=== PATIENT | male | born 1985 ===

== ENCOUNTER 2017-10-01 11:50 | Emergency (ER) | payer MEDICAID ==
[2017-10-01 12:00] VITALS: BP 105/66; PULSE 80; RESP 18; TEMP 98.1; O2SAT 98
--- NOTE | 2017-10-01 12:17 | C.PDOC ---
Time Seen by Provider: 10/01/17 12:06 Chief Complaint (Nursing): Suture/Staple Removal History Per: Patient Onset/Duration Of Symptoms: Days Ago, Laceration Current Symptoms Are (Timing): Better Location Of Injury: Right: Face (Forehead) Quality Of Symptoms: denies: Painful, Swollen, Draining Severity: Mild Additional History Per: Prior Records Past Medical History Reviewed: Historical Data, Nursing Documentation, Vital Signs Vital Signs: Last Vital Signs Temp 98.1 F 10/01/17 11:57 Pulse 80 10/01/17 11:57 Resp 18 10/01/17 11:57 BP 105/66 10/01/17 11:57 Pulse Ox 98 10/01/17 11:57 - Medical History PMH: Asthma (from previous charts) - [facility] Procedures OTHER SKIN & SUBQ I D (04/12/14) Family History: States: Unknown Family Hx - Social History Hx Tobacco Use: Yes Hx Alcohol Use: No Hx Substance Use: No - Immunization History Hx Tetanus Toxoid Vaccination: No Hx Influenza Vaccination: No Hx Pneumococcal Vaccination: No Review Of Systems Except As Marked, All Systems Reviewed And Found Negative. Constitutional: Negative for: Fever, Weakness Cardiovascular: Negative for: Chest Pain Gastrointestinal: Negative for: Nausea, Vomiting Musculoskeletal: Negative for: Neck Pain Skin: Negative for: Rash Neurological: Negative for: Weakness, Numbness, Seizures, Altered Mental Status , Headache Physical Exam - Physical Exam Appears: Non-toxic, No Acute Distress Skin: Normal Color, Warm, Dry Head: Normacephalic, Laceration (right forehead, healed, closed with sutures) Eye(s): bilateral: PERRL, EOMI Neck: Normal ROM, No Midline Cervical Tenderness, No Step Off Deformity, Supple Extremity: Normal ROM Neurological/Psych: Oriented x3, Normal Cognition, Normal Cranial Nerves ED Course And Treatment O2 Sat by Pulse Oximetry: 98 Pulse Ox Interpretation: Normal Progress Note: Suture were removed without difficulty Reassessment Condition: Improved Disposition Counseled Patient/Family Regarding: Diagnosis, Need For Followup - Disposition Referrals: [facility] [Outside] [facility] [Outside] Disposition: HOME/ ROUTINE Disposition Time: 12:17 Condition: STABLE Additional Instructions: Follow up with your doctor or in the clinic. Return to the ER if you develop fever, redness, swelling, pus drainage, worsening of symptoms or if you have any other concerns. Instructions: Stitches Removal (ED) Forms: [employer] (Angolan) - Clinical Impression Clinical Impression: Removal of suture
== END 2017-10-01 12:22 | disposition home or self-care (01) ==
LOC: C.ER 11:50
DX: Z48.02 Encounter for removal of sutures (principal)

== ENCOUNTER 2019-01-10 06:51 | Emergency (ER) | payer MEDICAID ==
[2019-01-10 07:07] VITALS: BP 119/88; PULSE 109; RESP 20; TEMP 98.3; O2SAT 99
[2019-01-10] MEDS ORDERED: Tdap Vaccine 0.5 ml Vial (10-64 yrs) IM ONE ×2 (07:39→10:20)
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
[2019-01-10] MEDS ORDERED: Lidocaine 2% Jelly (Uro-Jet) ONE (10:01)
[2019-01-10] MEDS ORDERED: Lidocaine 2% Jelly (Uro-Jet) TOP ONE (10:09)
[2019-01-10] MEDS ORDERED: Bacitracin 500 Units/gm Oint Foilpak UD TOP ONE (10:16)
[2019-01-10] MEDS ORDERED: Bacitracin 500 Units/gm Oint Foilpak UD ONE (10:27)
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
== END 2019-01-10 11:20 | disposition left against medical advice (07) ==
LOC: C.ER 06:51
DX: S60.222A Contusion of left hand, initial encounter (principal); S60.512A Abrasion of left hand, initial encounter; S60.511A Abrasion of right hand, initial encounter; W49.04XA Ring or other jewelry causing external constriction, initial encounter

== ENCOUNTER 2019-01-25 01:07 | Inpatient (IN) | payer MEDICAID ==
[2019-01-25] MEDS ORDERED: Clindamycin 600mg/50ml D5W 600 MG/50 ML VIAL IVPB SCH (02:45)
[2019-01-25 03:00] LABS: BASO # 0.1 K/uL (0.0-0.2); BASO % 0.5 % (0.0-2.0); EOS # 0.3 K/uL (0.0-0.7); EOS % 2.7 % (0.0-4.0); HEMOGLOBIN 13.3 g/dL (12.0-18.0); LYMPH # 2.7 K/uL (1.0-4.3); LYMPH % 23.2 % (20.0-40.0); MEAN CELL VOLUME 93.6 fL (80.0-94.0); MEAN CORPUSCULAR HEMOGLOBIN 31.6 pg (27.0-31.0); MEAN CORPUSCULAR HGB CONC 33.8 g/dL (33.0-37.0); MEAN PLATELET VOLUME 6.9 fL (7.2-11.7); MONO # 0.6 K/uL (0.0-0.8); MONO % 5.4 % (0.0-10.0); NEUT % 68.2 % (50.0-75.0); RBC 4.21 Mil/uL (4.40-5.90); RED CELL DISTRIBUTION WIDTH 13.8 % (11.5-14.5); WHITE BLOOD COUNT 11.7 K/uL (4.8-10.8)
[2019-01-25] MEDS ORDERED: Clindamycin 600mg/50ml NS 600 MG/50 ML BAG IVPB ONE (03:00)
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
[2019-01-25 03:12] LABS: ALB/GLOB RATIO 1.7 (1.0-2.1); ALBUMIN 4.5 g/dL (3.5-5.0); ALT/SGPT 11 U/L (21-72); AST/SGOT 25 U/L (17-59); BLOOD UREA NITROGEN 15 mg/dL (9-20); CALCIUM 9.3 mg/dl (8.6-10.4); GFR NON-AFRICAN AMERICAN > 60
[2019-01-25] MEDS ORDERED: Iodixanol 320 mg/ml 150 ml Bottle IV ONE (05:47)
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
--- NOTE | 2019-01-25 09:01 | RAD ---
PROCEDURE: Left Hand Radiographs. HISTORY: 4th finger swollen COMPARISON: Comparison made with prior radiographs of the left hand 01/10/2019. TECHNIQUE: 3 views obtained. FINDINGS: BONES: No evidence of displaced fracture nor dislocation. No obvious cortical destructive changes. JOINTS: Normal. No osteoarthritic changes. SOFT TISSUES: There is circumferential soft tissue swelling centered at the PIP joint 4th finger possibly posttraumatic however the possibility of cellulitis not excluded. Clinical correlation recommended.. OTHER FINDINGS: None. IMPRESSION: No evidence of acute displaced fracture nor dislocation. There is circumferential soft tissue swelling centered at the PIP joint 4th finger possibly posttraumatic however the possibility of cellulitis not excluded. Clinical correlation recommended..
[2019-01-25] MEDS: Pantoprazole 40 mg EC Tab PO SCH (09:38)
[2019-01-25] MEDS: Multiple Vitamins Tab PO SCH (09:38)
[2019-01-25] MEDS: Clindamycin 300 MG in Sodium Chloride 0.9% 50 ML IVPB SCH ×3 (09:39→22:04)
[2019-01-25] MEDS: Clotrimazole 1% Cream 15 GM TUBE TOP SCH ×3 (09:40→22:07)
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
[2019-01-25 11:37] LABS: BASO % 0.4 % (0.0-2.0); EOS # 0.5 K/uL (0.0-0.7); EOS % 5.2 % (0.0-4.0); HEMOGLOBIN 12.7 g/dL (12.0-18.0); LYMPH # 2.3 K/uL (1.0-4.3); LYMPH % 25.1 % (20.0-40.0); MEAN CELL VOLUME 94.6 fL (80.0-94.0); MEAN CORPUSCULAR HEMOGLOBIN 32.4 pg (27.0-31.0); MEAN CORPUSCULAR HGB CONC 34.3 g/dL (33.0-37.0); MEAN PLATELET VOLUME 7.2 fL (7.2-11.7); MONO # 0.8 K/uL (0.0-0.8); MONO % 8.3 % (0.0-10.0); NEUT # 5.6 K/uL (1.8-7.0); NRBC % 0.1 % (0.0-2.0); RBC 3.92 Mil/uL (4.40-5.90); RED CELL DISTRIBUTION WIDTH 13.9 % (11.5-14.5); WHITE BLOOD COUNT 9.2 K/uL (4.8-10.8)
[2019-01-25 12:02] LABS: ALB/GLOB RATIO 1.7 (1.0-2.1); ALBUMIN 3.9 g/dL (3.5-5.0); ALT/SGPT 14 U/L (21-72); AST/SGOT 24 U/L (17-59); BLOOD UREA NITROGEN 19 mg/dL (9-20); CALCIUM 9.3 mg/dl (8.6-10.4); GFR NON-AFRICAN AMERICAN > 60
[2019-01-25 12:40] LABS: BARBITURATES, UR NEGATIVE (NEGATIVE); BENZODIAZEPINES, UR NEGATIVE (NEGATIVE); OPIATES, UR NEGATIVE (NEGATIVE)
[2019-01-25 13:00] LABS: PHENCYCLIDINE, UR POSITIVE (NEGATIVE)
[2019-01-25] MEDS: Moxifloxacin IV 400mg/250ml NS 400 MG/250 ML BAG IVPB SCH (13:30)
[2019-01-25] MEDS ORDERED: Pneumococcal 23-Valent Vaccine IM ONE (19:15)
[2019-01-25] MEDS ORDERED: Influenza Vaccine 60 mcg/0.5 mL SYR (4YR UP) IM ONE (19:16)
[2019-01-25] MEDS: Saccharomyces Boulardi 250 mg Cap PO SCH (22:04)
[2019-01-26 02:41] VITALS: RESP 20
[2019-01-26] MEDS: Clindamycin 300 MG in Sodium Chloride 0.9% 50 ML IVPB SCH ×4 (05:11→23:17)
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
[2019-01-26 08:00] LABS: BASO % 0.6 % (0.0-2.0); EOS # 0.5 K/uL (0.0-0.7); EOS % 7.2 % (0.0-4.0); HEMOGLOBIN 13.1 g/dL (12.0-18.0); LYMPH # 2.8 K/uL (1.0-4.3); LYMPH % 41.1 % (20.0-40.0); MEAN CORPUSCULAR HGB CONC 34.7 g/dL (33.0-37.0); MEAN PLATELET VOLUME 7.4 fL (7.2-11.7); MONO # 0.7 K/uL (0.0-0.8); MONO % 9.8 % (0.0-10.0); NEUT # 2.8 K/uL (1.8-7.0); NEUT % 41.3 % (50.0-75.0); RBC 3.98 Mil/uL (4.40-5.90); RED CELL DISTRIBUTION WIDTH 14.2 % (11.5-14.5); WHITE BLOOD COUNT 6.8 K/uL (4.8-10.8)
[2019-01-26 08:26] LABS: ALB/GLOB RATIO 1.5 (1.0-2.1); ALBUMIN 3.6 g/dL (3.5-5.0); ALT/SGPT 9 U/L (21-72); AST/SGOT 25 U/L (17-59); BLOOD UREA NITROGEN 20 mg/dL (9-20); CALCIUM 8.6 mg/dl (8.6-10.4); GFR NON-AFRICAN AMERICAN > 60
[2019-01-26] MEDS: Pantoprazole 40 mg EC Tab PO SCH (10:24)
[2019-01-26] MEDS: Multiple Vitamins Tab PO SCH (10:24)
[2019-01-26] MEDS: Saccharomyces Boulardi 250 mg Cap PO SCH ×2 (10:24→17:50)
[2019-01-26] MEDS: Clotrimazole 1% Cream 15 GM TUBE TOP SCH ×2 (10:25→23:09)
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
[2019-01-26] MEDS: Moxifloxacin IV 400mg/250ml NS 400 MG/250 ML BAG IVPB SCH (13:42)
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
--- NOTE | 2019-01-26 17:15 | NM ---
Date of service: 01/26/2019 PROCEDURE: Three-phase bone Scan HISTORY: r/o OM L 4th digit COMPARISON: January 26, 2019 CT left upper extremity TECHNIQUE: Following administration of 21.5 miCu of Tc MDP three-phase bone scan performed with particular attention directed to the left 4th digit. FINDINGS: Flow component: Increased flow to the left hand compared to right. Focal intense uptake left 4th digit and to lesser extent 2nd and 3rd digits. Blood pool component: Accumulation of radionuclide in decreasing order of intensity left 4th digit, 2nd digit and 3rd digit. Delayed images at 3:00: Retention of radionuclide 2nd 3rd and 4th digits left hand. Degenerative changes both hands wrists and elbows. Other findings: None. IMPRESSION: Positive 3 phase bone scan. Multiple abnormalities left hand including the clinically suspected 4th digit.
[2019-01-27] MEDS: Clindamycin 300 MG in Sodium Chloride 0.9% 50 ML IVPB SCH ×4 (05:26→22:40)
--- NOTE | 2019-01-27 06:55 | CP.PCM.PN ---
Subjective - Date & Time of Evaluation Date of Evaluation: 01/27/19 Time of Evaluation: 09:50 - Subjective Subjective: Patient examined at bedside. No acute overnight events. Patient reports stiffness and decreased range of motion of left thumb, index and 4th digit. Reports swelling and pain improving. Patient reports although he wants to continue treatment, he is eager to leave the hospital and continue outpatient treatment as he has children and responsibilities to tend to. Patient complains of GI distress including excess gas and several episodes of loose watery BMs following antibiotic administration. Patient denies further complaints of chills, chest pain, SOB, nausea. Objective - Vital Signs/Intake and Output Vital Signs (last 24 hours): Temp Pulse Resp BP Pulse Ox 98.5 F 71 20 113/78 100 01/26/19 23:50 01/26/19 23:50 01/26/19 23:50 01/26/19 23:50 01/26/19 23:50 Intake and Output: 01/26/19 01/27/19 18:59 06:59 Intake Total 1020 Balance 1020 - Medications Medications: Current Medications Acetaminophen (Tylenol 325mg Tab) 650 mg PO Q6 PRN PRN Reason: Pain, Mild (1-3) Clotrimazole (Lotrimin 1%) 1 gm TOP Q12H [facility] Last Admin: 01/26/19 23:09 Dose: 1 applic Clindamycin Phosphate 300 mg/ (Sodium Chloride) 52 mls @ 104 mls/hr IVPB Q6H [facility]; Protocol Last Admin: 01/27/19 05:26 Dose: 104 mls/hr Moxifloxacin HCl (Avelox Iv 400mg/250ml Ns) 400 mg in 250 mls @ 167 mls/hr IVPB Q24H [facility]; Protocol Last Admin: 01/26/19 13:42 Dose: 167 mls/hr Ketorolac Tromethamine (Toradol) 10 mg PO Q6 PRN PRN Reason: Pain, moderate (4-7) Last Admin: 01/25/19 14:15 Dose: 10 mg Multivitamins (Hexavitamin) 1 tab PO DAILY [facility] Last Admin: 01/26/19 10:24 Dose: 1 tab Nicotine (Nicoderm Cq) 1 patch TD DAILY [facility] Last Admin: 01/26/19 10:24 Dose: 1 patch Pantoprazole Sodium (Protonix Ec Tab) 40 mg PO DAILY [facility] Last Admin: 01/26/19 10:24 Dose: 40 mg Saccharomyces Boulardii (Florastor) 250 mg PO BID [facility] Last Admin: 01/26/19 17:50 Dose: 250 mg - Labs Labs: 01/26/19 07:43 01/26/19 07:43 - Constitutional Appears: Non-toxic, No Acute Distress, Agitated - Head Exam Head Exam: ATRAUMATIC, NORMAL INSPECTION, NORMOCEPHALIC - Eye Exam Eye Exam: EOMI, Normal appearance - ENT Exam ENT Exam: Mucous Membranes Moist, Normal Exam - Neck Exam Neck Exam: Normal Inspection - Respiratory Exam Respiratory Exam: Clear to Ausculation Bilateral, NORMAL BREATHING PATTERN - Cardiovascular Exam Cardiovascular Exam: REGULAR RHYTHM, +S1, +S2. absent: Tachycardia - GI/Abdominal Exam GI & Abdominal Exam: Soft, Normal Bowel Sounds. absent: Distended, Tenderness - Extremities Exam Extremities Exam: Joint Swelling, Normal Capillary Refill, Normal Inspection. absent: Calf Tenderness, Pedal Edema Additional comments: right hand, abrasions and joint swelling to PIPs left hand, abrasions and joint swelling to PIPs, worse to 4th digit. Decreased ROM and muscle strength. 2+ radial pulses - Back Exam Back Exam: NORMAL INSPECTION - Neurological Exam Neurological Exam: Alert, Awake, Oriented x3 - Psychiatric Exam Psychiatric exam: Agitated - Skin Skin Exam: Abrasion (b/l hands), Dry, Normal Color, Warm Assessment and Plan - Assessment and Plan (Free Text) Assessment: 33 year old male w/ no pmhx admitted for evaluation and treatment of cellulitis/suspected OM of 4th left digit Plan: Cellulitis/Suspected OM of left 4th digit CT left hand(01/25): Along dorsal and slightly lateral aspect of 4th proximal phalynx, distal aspect cortical ill definition is concerning for focal OM. Overlying cellulitis 3 phase bone scan(01/26): Positive 3 phase bone scan. Multiple abnormalities left hand including 4th digit. IV Abx(01/25); Clinda 300mg q6h, Avelox 400mg qd PICC ordered Pain medication PRN, Tylenol 650mg q6h, Toradol 10mg po q6 wound cx: MRSA + blood cx: no growth >48h ESR: 7, WNL CRP: <5, WNL Wound care Consider PICC for mcc abx Ortho consult, Dr. Lozano; no surgical intervention, recommend pt receive one shot of Dalvance at time of discharge ID consult, Dr. Beach Tinea Pedis Clotrimazole 1g Q12h Substance Abuse UDS positive for PCP and cannabis Nicotine patch qd Multivitamins Ppx GI:Protonix 40mg po qd VTE: SCDs Florastor BID Imodium 2g QID prn Simethicone 80mg po BID prn OT Dispo: Pt to be discharged w/ PICC for 6 wks abx(cubicin, per ID) Discussed w/ Dr. Lauren Kumar, PGY-1
[2019-01-27 07:33] LABS: BASO % 0.4 % (0.0-2.0); EOS # 0.5 K/uL (0.0-0.7); EOS % 6.6 % (0.0-4.0); HEMOGLOBIN 13.3 g/dL (12.0-18.0); LYMPH # 2.7 K/uL (1.0-4.3); LYMPH % 37.8 % (20.0-40.0); MEAN CELL VOLUME 94.9 fL (80.0-94.0); MEAN CORPUSCULAR HEMOGLOBIN 32.4 pg (27.0-31.0); MEAN CORPUSCULAR HGB CONC 34.2 g/dL (33.0-37.0); MEAN PLATELET VOLUME 7.2 fL (7.2-11.7); MONO # 0.5 K/uL (0.0-0.8); MONO % 7.6 % (0.0-10.0); NEUT # 3.4 K/uL (1.8-7.0); NEUT % 47.6 % (50.0-75.0); NRBC % 0.2 % (0.0-2.0); RBC 4.09 Mil/uL (4.40-5.90); RED CELL DISTRIBUTION WIDTH 13.9 % (11.5-14.5); WHITE BLOOD COUNT 7.2 K/uL (4.8-10.8)
[2019-01-27 08:03] LABS: ALB/GLOB RATIO 1.6 (1.0-2.1); ALBUMIN 3.9 g/dL (3.5-5.0); ALT/SGPT 12 U/L (21-72); AST/SGOT 26 U/L (17-59); BLOOD UREA NITROGEN 17 mg/dL (9-20); CALCIUM 8.7 mg/dl (8.6-10.4); GFR NON-AFRICAN AMERICAN > 60
[2019-01-27] MEDS: Saccharomyces Boulardi 250 mg Cap PO SCH ×2 (09:42→18:55)
[2019-01-27] MEDS: Multiple Vitamins Tab PO SCH (09:42)
[2019-01-27] MEDS: Pantoprazole 40 mg EC Tab PO SCH (09:43)
[2019-01-27] MEDS: Clotrimazole 1% Cream 15 GM TUBE TOP SCH ×2 (09:44→22:05)
[2019-01-27] MEDS ORDERED: Petrolatum Oint Foilpak (5 gm) TOP PRN (11:50)
[2019-01-27] MEDS: Simethicone 80 mg Chewtab PO PRN (14:47)
[2019-01-27] MEDS: Moxifloxacin IV 400mg/250ml NS 400 MG/250 ML BAG IVPB SCH (15:00)
--- NOTE | 2019-01-27 15:18 | RAD ---
Date of service: 01/27/2019 HISTORY: verify right pICC COMPARISON: No prior. TECHNIQUE: 1 view obtained. FINDINGS: LUNGS: No active pulmonary disease. PLEURA: No significant pleural effusion identified, no pneumothorax apparent. CARDIOVASCULAR: No aortic atherosclerotic calcification present. Normal cardiac size. No pulmonary vascular congestion. OSSEOUS STRUCTURES: No significant abnormalities. VISUALIZED UPPER ABDOMEN: Normal. OTHER FINDINGS: Right-sided PICC line is seen at appropriate position with the distal tip is likely at the SVC right atrium junction. IMPRESSION: No evidence of acute pulmonary disease. Appropriate position of the right PICC line with the distal tip is likely at the distal SVC right atrium junction.
--- NOTE | 2019-01-27 22:55 | CP.PCM.PN ---
Subjective - Date & Time of Evaluation Date of Evaluation: 01/27/19 Time of Evaluation: 09:00 - Subjective Subjective: PICC line in place for 6 weeks dapto as out pt Objective - Vital Signs/Intake and Output Vital Signs (last 24 hours): Temp Pulse Resp BP Pulse Ox 98.1 F 63 20 97/56 L 99 01/27/19 16:00 01/27/19 16:00 01/27/19 16:00 01/27/19 16:00 01/27/19 16:00 Intake and Output: 01/27/19 01/28/19 18:59 06:59 Intake Total 1900 Balance 1900 - Medications Medications: Current Medications Acetaminophen (Tylenol 325mg Tab) 650 mg PO Q6 PRN PRN Reason: Pain, Mild (1-3) Last Admin: 01/27/19 21:33 Dose: 650 mg Clotrimazole (Lotrimin 1%) 1 gm TOP Q12H [facility] Last Admin: 01/27/19 09:44 Dose: 1 applic Emollient Ointment (Vaseline Oint) 5 gm TOP Q4H PRN PRN Reason: Dry skin Clindamycin Phosphate 300 mg/ (Sodium Chloride) 52 mls @ 104 mls/hr IVPB Q6H [facility]; Protocol Last Admin: 01/27/19 18:55 Dose: Not Given Moxifloxacin HCl (Avelox Iv 400mg/250ml Ns) 400 mg in 250 mls @ 167 mls/hr IVPB Q24H [facility]; Protocol Last Admin: 01/27/19 15:00 Dose: 167 mls/hr Daptomycin 400 mg/ Sodium (Chloride) 100 mls @ 100 mls/hr IV Q24H [facility]; Protocol Stop: 02/02/19 09:01 Ketorolac Tromethamine (Toradol) 10 mg PO Q6 PRN PRN Reason: Pain, moderate (4-7) Last Admin: 01/27/19 09:42 Dose: 10 mg Loperamide HCl (Imodium) 2 mg PO QID PRN PRN Reason: Diarrhea Multivitamins (Hexavitamin) 1 tab PO DAILY [facility] Last Admin: 01/27/19 09:42 Dose: 1 tab Nicotine (Nicoderm Cq) 1 patch TD DAILY [facility] Last Admin: 01/27/19 09:43 Dose: 1 patch Pantoprazole Sodium (Protonix Ec Tab) 40 mg PO DAILY [facility] Last Admin: 01/27/19 09:43 Dose: 40 mg Saccharomyces Boulardii (Florastor) 250 mg PO BID [facility] Last Admin: 01/27/19 18:55 Dose: Not Given Simethicone (Mylicon Chew Tab) 80 mg PO BID PRN PRN Reason: GI distress Last Admin: 01/27/19 14:47 Dose: 80 mg - Labs Labs: 01/27/19 07:25 01/27/19 07:25 - Constitutional Appears: Well - Head Exam Head Exam: ATRAUMATIC, NORMAL INSPECTION, NORMOCEPHALIC - Eye Exam Eye Exam: EOMI, Normal appearance, PERRL Pupil Exam: NORMAL ACCOMODATION, PERRL - ENT Exam ENT Exam: Mucous Membranes Moist, Normal Exam - Neck Exam Neck Exam: Full ROM, Normal Inspection. absent: Lymphadenopathy - Respiratory Exam Respiratory Exam: Clear to Ausculation Bilateral, NORMAL BREATHING PATTERN - Cardiovascular Exam Cardiovascular Exam: REGULAR RHYTHM, +S1, +S2. absent: Murmur - GI/Abdominal Exam GI & Abdominal Exam: Soft, Normal Bowel Sounds. absent: Tenderness - Rectal Exam Rectal Exam: Deferred - Exam Exam: NORMAL INSPECTION Bimanual exam: NORMAL BIMANUAL EXAM - Extremities Exam Extremities Exam: Full ROM, Normal Capillary Refill, Normal Inspection. absent: Joint Swelling, Pedal Edema - Back Exam Back Exam: NORMAL INSPECTION - Neurological Exam Neurological Exam: Alert, Awake, CN II-XII Intact, Normal Gait, Oriented x3 - Psychiatric Exam Psychiatric exam: Normal Affect, Normal Mood - Skin Skin Exam: Dry, Intact, Normal Color, Warm Assessment and Plan (1) Osteomyelitis of finger of left hand Status: Acute (2) Abrasions of multiple sites Status: Acute - Assessment and Plan (Free Text) Assessment: cont cubicin as out pt weekly CPK CRP ESR CBC CMP
[2019-01-28] MEDS: Clindamycin 300 MG in Sodium Chloride 0.9% 50 ML IVPB SCH ×2 (05:16→10:43)
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
[2019-01-28 08:18] LABS: BASO % 0.3 % (0.0-2.0); EOS # 0.5 K/uL (0.0-0.7); EOS % 6.6 % (0.0-4.0); HEMOGLOBIN 12.7 g/dL (12.0-18.0); MEAN CELL VOLUME 94.3 fL (80.0-94.0); MEAN CORPUSCULAR HEMOGLOBIN 32.4 pg (27.0-31.0); MEAN CORPUSCULAR HGB CONC 34.3 g/dL (33.0-37.0); MEAN PLATELET VOLUME 7.3 fL (7.2-11.7); MONO # 0.8 K/uL (0.0-0.8); NEUT # 3.4 K/uL (1.8-7.0); NEUT % 44.1 % (50.0-75.0); NRBC % 0.1 % (0.0-2.0); RBC 3.93 Mil/uL (4.40-5.90); WHITE BLOOD COUNT 7.8 K/uL (4.8-10.8)
[2019-01-28 08:28] VITALS: BP 120/75; PULSE 83; TEMP 98; O2SAT 98
[2019-01-28 08:35] LABS: ALB/GLOB RATIO 1.4 (1.0-2.1); ALBUMIN 3.6 g/dL (3.5-5.0); ALT/SGPT 11 U/L (21-72); AST/SGOT 26 U/L (17-59); BLOOD UREA NITROGEN 19 mg/dL (9-20); CALCIUM 8.8 mg/dl (8.6-10.4); GFR NON-AFRICAN AMERICAN > 60
[2019-01-28] MEDS: Clotrimazole 1% Cream 15 GM TUBE TOP SCH (10:15)
[2019-01-28] MEDS: Saccharomyces Boulardi 250 mg Cap PO SCH (10:50)
[2019-01-28] MEDS: Multiple Vitamins Tab PO SCH (10:50)
[2019-01-28] MEDS: Simethicone 80 mg Chewtab PO PRN (10:50)
[2019-01-28] MEDS: Pantoprazole 40 mg EC Tab PO SCH (10:50)
== END 2019-01-28 13:09 | disposition home or self-care (01) | DRG 344 ==
LOC: C.ER 01:07 → C.9E 06:00 → C.6T 06:11 → OBSVTOIN 01-27 10:43
PROVIDERS: ADMIT Internal Medicine; ATTEND Internal Medicine
PROC: 02HV33Z Insertion of Infusion Device into Superior Vena Cava, Percutaneous Approach (ICD-10-PCS; principal; 2019-01-27)
DX: M86.242 Subacute osteomyelitis, left hand (principal); F16.10 Hallucinogen abuse, uncomplicated; F17.210 Nicotine dependence, cigarettes, uncomplicated; J45.909 Unspecified asthma, uncomplicated; F12.10 Cannabis abuse, uncomplicated

== ENCOUNTER 2019-02-05 06:08 | Emergency (ER) | payer MEDICAID ==
[2019-02-05 06:08] VITALS: BMI 23.5
[2019-02-05 06:30] VITALS: BP 116/71; PULSE 65; RESP 16; TEMP 98.5; O2SAT 99
--- NOTE | 2019-02-05 07:18 | C.PDOC ---
History Of Present Illness 33 year old male presents to ED with complaint of left hand pain. Patient was recently diagnosed with osteomyelitis of the left 4th finger. Patient has a PICC line and takes daily infusions of antibiotics at the infusion center. Patient states that he doesn't go there everyday because of the time it takes to travel. Patient is requesting something for the pain. Patient denies numbness or weakness. Time Seen by Provider: 02/05/19 07:04 Chief Complaint (Nursing): Finger,Hand,&Wrist History Per: Patient History/Exam Limitations: no limitations Current Symptoms Are (Timing): Still Present Quality: "Pain" Past Medical History Reviewed: Historical Data, Nursing Documentation, Vital Signs Vital Signs: Last Vital Signs Temp 98.5 F 02/05/19 06:22 Pulse 65 02/05/19 06:22 Resp 16 02/05/19 06:22 BP 116/71 02/05/19 06:22 Pulse Ox 99 02/05/19 06:22 - Medical History PMH: Asthma Denies: Deep Vein Thrombosis Surgical History: Denies: Pacemaker - [facility] Procedures INSERTION OF INFUSION DEV INTO SUP VENA CAVA, PERC APPROACH (01/27/19) OTHER SKIN & SUBQ I D (04/12/14) Family History: States: Unknown Family Hx - Social History Hx Tobacco Use: Yes Hx Alcohol Use: No Hx Substance Use: No - Immunization History Hx Tetanus Toxoid Vaccination: Yes Hx Influenza Vaccination: Yes Hx Pneumococcal Vaccination: Yes Review Of Systems Constitutional: Negative for: Fever, Chills, Weakness Musculoskeletal: Positive for: Hand Pain (left hand pain) Neurological: Negative for: Weakness, Numbness, Dizziness Physical Exam - Physical Exam Appears: Non-toxic, Other (appears to be in mild pain) Skin: Normal Color, Warm, Dry Head: Atraumatic, Normacephalic Neck: Normal ROM, Supple Chest: Symmetrical, No Deformity Cardiovascular: Rhythm Regular, No Murmur Respiratory: No Accessory Muscle Use, No Rales, No Rhonchi, No Wheezing Gastrointestinal/Abdominal: Soft, No Tenderness Extremity: Capillary Refill (<2 seconds), Other (the 2nd, 3rd, and 4th digits of the left hand are in flexon; mild swelling,erythema, and eschar at the PIP joint of the 4th digit) Neurological/Psych: Oriented x3, Normal Speech, Normal Cognition, Normal Sensation ED Course And Treatment O2 Sat by Pulse Oximetry: 99 (in RA) Progress Note: Patient given Toradol IM for the pain. Upon re-evaluation, patient is resting comfortably, in no acute distress, and is stable for discharge. Patient advised to continue with daily antibiotics infusions and to return to ED if symptoms persist or worsen. Disposition Counseled Patient/Family Regarding: Diagnosis, Need For Followup, Rx Given - Disposition Referrals: [facility] [Outside] Disposition: HOME/ ROUTINE Disposition Time: 07:30 Condition: STABLE Additional Instructions: MAKE SURE YOU GO FOR YOUR DAILY ANTIBIOTIC INFUSIONS USE PAIN MEDICATIONS NEEDED RETURN TO ER IF SYMPTOMS WORSEN Prescriptions: Naproxen [Naprosyn] 1 tab PO BID PRN #60 tab PRN Reason: Pain traMADol [Ultram] 50 mg PO Q8 #15 tab Instructions: Hand Pain (DC) Forms: [facility] (Hebrew) Print Language: ANGOLAN - Clinical Impression Clinical Impression: Left hand pain, Osteomyelitis of finger of left hand - Scribe Statement The provider has reviewed the documentation as recorded by the Scribe (Evelia Fry) All medical record entries made by the Scribe were at my direction and personally dictated by me. I have reviewed the chart and agree that the record accurately reflects my personal performance of the history, physical exam, medical decision making, and the department course for this patient. I have also personally directed, reviewed, and agree with the discharge instructions and disposition.
== END 2019-02-05 07:24 | disposition home or self-care (01) ==
LOC: C.ER 06:08
DX: M79.642 Pain in left hand (principal); M86.9 Osteomyelitis, unspecified
CPT/HCPCS: 96372; 99285; J1885

== ENCOUNTER 2019-02-09 06:03 | Emergency (ER) | payer MEDICAID ==
[2019-02-09 06:03] VITALS: BMI 23.5
[2019-02-09 06:19] VITALS: TEMP 97.5
--- NOTE | 2019-02-09 07:25 | C.PDOC ---
History Of Present Illness Patient is a 33 year old male w/ pmhx of asthma, recently admitted for treatment of left 4th digit OM who presents to the ED today with complaints of progressively worsening headaches, body pains, weakness, nausea, vomiting x2 days. Patient reports retrosternal and epigastric pain, left 2nd digit pain, generalized nausea, abdominal discomfort, 1-2 loose BMs/day and post prandial NBNB emesis. Patient reports non-compliance with his daily outpatient antibiotic infusions of Cubicin via right PICC since being discharged 01/28; stating he only receives 1-2 treatments weekly of a 6 week course, 2/2 transportation issues. Denies fever like symptoms, IV drug use, drainage from trauma sites, loss of sensation or coldness to upper extremities. Of note: patient recently presented to ED with complaints of left hand pain on 02/05; given pain medication with relief of symptoms <Beckie Kumar - Last Filed: 02/09/19 12:16> <Mehnaz Shen - Last Filed: 02/09/19 07:47> History Per: Patient History/Exam Limitations: no limitations Onset/Duration Of Symptoms: Days Current Symptoms Are (Timing): Still Present <Beckie Kumar - Last Filed: 02/09/19 12:16> Chief Complaint (Nursing): Medical Clearance Past Medical History Vital Signs: Last Vital Signs Temp 97.5 F L 02/09/19 06:15 Pulse 75 02/09/19 06:15 Resp 02/09/19 06:15 BP 105/73 02/09/19 06:15 Pulse Ox 96 02/09/19 07:43 - [facility] Procedures INSERTION OF INFUSION DEV INTO SUP VENA CAVA, PERC APPROACH (01/27/19) OTHER SKIN & SUBQ I D (04/12/14) <Mehnaz Shen - Last Filed: 02/09/19 07:47> Vital Signs: Last Vital Signs Temp 97.5 F L 02/09/19 06:15 Pulse 75 02/09/19 06:15 Resp 02/09/19 06:15 BP 105/73 02/09/19 06:15 Pulse Ox 96 02/09/19 06:15 - Medical History PMH: Asthma Denies: Deep Vein Thrombosis Surgical History: Denies: Pacemaker - [facility] Procedures INSERTION OF INFUSION DEV INTO SUP VENA CAVA, PERC APPROACH (01/27/19) OTHER SKIN & SUBQ I D (04/12/14) Family History: States: Unknown Family Hx - Social History Hx Tobacco Use: Yes Hx Alcohol Use: No Hx Substance Use: No - Immunization History Hx Tetanus Toxoid Vaccination: Yes Hx Influenza Vaccination: Yes Hx Pneumococcal Vaccination: Yes <Beckie Kumar Last Filed: 02/09/19 12:16> Review Of Systems Constitutional: Positive for: Weakness. Negative for: Fever, Chills Cardiovascular: Positive for: Chest Pain. Negative for: Palpitations Respiratory: Positive for: Shortness of Breath. Negative for: Cough Gastrointestinal: Positive for: Nausea, Vomiting, Abdominal Pain, Diarrhea. Negative for: Hematochezia Musculoskeletal: Positive for: Hand Pain Neurological: Positive for: Headache. Negative for: Numbness <Beckie Kumar Last Filed: 02/09/19 12:16> Physical Exam - Physical Exam Appears: Non-toxic, No Acute Distress Skin: Normal Color, Warm, Dry Head: Atraumatic, Normacephalic Eye(s): bilateral: Normal Inspection, EOMI, Other (conjunctival injection) Oral Mucosa: Moist Neck: Normal Cardiovascular: Rhythm Regular, No Murmur Respiratory: Normal Breath Sounds Gastrointestinal/Abdominal: Normal Exam, Bowel Sounds, Soft, No Tenderness, No Distention Back: Normal Inspection Extremity: No Normal ROM, No Pedal Edema, Capillary Refill, Other (Left hand; PIPs erythematous, no drainage, minimally TTP; finding unchanged from eval on prior admission) Extremity: Left: Limited ROM To Joint (left hand), Right: Other (Right PICC, clean/dry/intact) Pulses: Right Radial: Normal, Left Femoral: Normal Neurological/Psych: Oriented x3, Normal Motor, Normal Sensation <Beckie Kumar - Last Filed: 02/09/19 12:16> ED Course And Treatment - Laboratory Results Result Diagrams: 02/09/19 08:36 02/09/19 08:36 Lab Interpretation: No Changes Compared To Prior Results ECG: Viewed By De ECG Rhythm: Sinus Bradycardia O2 Sat by Pulse Oximetry: 96 - Radiology CXR: Viewed By De CXR Interpretation: Yes: No Acute Disease, Other (PICC line good placement) Reassessment Condition: Improved <Beckie Kumar - Last Filed: 02/09/19 12:16> Supervising Attending Note - Notes: Notes:: NEW ONSET L 2 ND FINGER PAIN, MYALGIA, GEN WEAKNESS, ALONSO, POST PRANDIAL EMESIS X 2 DAYS. NO FEVER. SP DC 01/28 ON ABX FOR OSTEOMYELITIS. PS NONCOMPLIANT W CURRENT TX DUE TO TRANSPORTATION. HO +CANNABIS ABUSE . EXAM ABOVE. MDM VOMITING RO DEHYDRATION. NONCOMPLIANCE ABX HO OSTEOMYELITIS RO SEPSIS. <Mehnaz Shen - Last Filed: 02/09/19 07:47> Medical Decision Making Medical Decision Makin33 year old male currently being treated for left 4th digit OM, non compliant w/ treatment, presenting with diffuse myalgias, weakness, left index finger pain, epigastric/retrosternal chest pain, nausea, vomiting x2 days Sepsis workup: CBC CMP Mg Phos PT/PTT EKG VBG CXR Left 2nd digit xray Troponin Blood cx Urine cx UA IVF Zofran Tylenol Improvement in symptoms; patient to continue outpatient infusions <Beckie Kumar - Last Filed: 02/09/19 12:16> Disposition <Mehnaz Shen - Last Filed: 02/09/19 07:47> Counseled Patient/Family Regarding: Studies Performed, Diagnosis, Need For Followup - Disposition Disposition Time: 12:11 - POA Present On Arrival: None <Beckie Kumar - Last Filed: 02/09/19 12:16> - Disposition Disposition: HOME/ ROUTINE Condition: FAIR Additional Instructions: Patient discharged home in stable condition Patient instructed to continue receiving daily antibiotic infusions for treatment of osteomyelitis Patient instructed to return to ED with worsening of symptoms Forms: [facility] (Martiniquais), General Discharge Instructions - Clinical Impression Clinical Impression: Medical assessment, Osteomyelitis of finger of left hand - PA / OPERATIONS ADVISOR / Resident Statement MD/DO has examined the patient and agrees with the treatment plan. <Beckie Kumar - Last Filed: 02/09/19 12:16>
[2019-02-09 08:44] LABS: BASO % 0.3 % (0.0-2.0); EOS # 0.1 K/uL (0.0-0.7); EOS % 1.3 % (0.0-4.0); HEMOGLOBIN 13.8 g/dL (12.0-18.0); LYMPH # 2.7 K/uL (1.0-4.3); LYMPH % 26.6 % (20.0-40.0); MEAN CELL VOLUME 94.6 fL (80.0-94.0); MEAN CORPUSCULAR HEMOGLOBIN 32.4 pg (27.0-31.0); MEAN CORPUSCULAR HGB CONC 34.2 g/dL (33.0-37.0); MEAN PLATELET VOLUME 7.8 fL (7.2-11.7); MONO # 0.8 K/uL (0.0-0.8); MONO % 8.3 % (0.0-10.0); NEUT # 6.3 K/uL (1.8-7.0); NEUT % 63.5 % (50.0-75.0); NRBC % 0.1 % (0.0-2.0); RBC 4.28 Mil/uL (4.40-5.90); RED CELL DISTRIBUTION WIDTH 14.6 % (11.5-14.5)
[2019-02-09 08:49] LABS: PROTHROMBIN TIME 11.4 SECONDS (9.7-12.2)
[2019-02-09 08:50] LABS: VENOUS BLOOD GAS BASE EXCESS 3.7 mmol/L (0.0-2.0); VENOUS BLOOD GAS PCO2 43 mmHg (40-60); VENOUS BLOOD GAS PO2 72 mm/Hg (30-55); VENOUS BLOOD PH 7.43 (7.32-7.43)
[2019-02-09 09:07] LABS: ALB/GLOB RATIO 1.6 (1.0-2.1); ALBUMIN 4.2 g/dL (3.5-5.0); ALT/SGPT 19 U/L (21-72); AST/SGOT 26 U/L (17-59); BLOOD UREA NITROGEN 10 mg/dL (9-20); CALCIUM 9.3 mg/dl (8.6-10.4); GFR NON-AFRICAN AMERICAN > 60
[2019-02-09 10:09] LABS: SQUAMOUS EPITHIAL < 1 /hpf (0-5); URINE BILIRUBIN NEGATIVE (NEGATIVE); URINE BLOOD NEGATIVE (NEGATIVE); URINE CLARITY Clear (Clear); URINE COLOR Yellow (YELLOW); URINE GLUCOSE (UA) NORMAL (Normal); URINE LEUKOCYTE ESTERASE NEG Leu/uL (Negative); URINE PROTEIN NEGATIVE (NEGATIVE); URINE UROBILINOGEN NORMAL mg/dL (0.2-1.0)
--- NOTE | 2019-02-09 11:25 | RAD ---
HISTORY: Sepsis Patient COMPARISON: Chest x-ray performed 01/27/19 TECHNIQUE: Chest, one view. FINDINGS: Right-sided PICC extends to the expected location of the SVC. LUNGS: Subtle hazy/streaky opacity projecting over the right upper lobe suspected artifactual; infiltrate cannot be excluded. Please note that chest x-ray has limited sensitivity for the detection of pulmonary masses. PLEURA: No significant pleural effusion identified. No definite pneumothorax . CARDIOVASCULAR: The cardiomediastinal silhouette appears within normal limits of size. No significant atherosclerotic calcification present. OSSEOUS STRUCTURES: No acute osseous abnormality identified. VISUALIZED UPPER ABDOMEN: Unremarkable. OTHER FINDINGS: None. IMPRESSION: Right-sided PICC extends to the expected location of the SVC. Subtle hazy/streaky opacity projecting over the right upper lobe suspected artifactual; infiltrate cannot be excluded. Correlate clinically. Study marked for PA review.
[2019-02-09 12:11] VITALS: BP 99/53; PULSE 58; RESP 18
[2019-02-09 12:13] VITALS: O2SAT 96
--- NOTE | 2019-02-09 13:12 | RAD ---
Date of service: 02/09/2019 PROCEDURE: Left Index finger radiographs. HISTORY: pain, hx of left hand OM COMPARISON: None. TECHNIQUE: AP radiograph of the left hand, as well as spot oblique and lateral images of index finger were obtained. 4 views obtained. FINDINGS: LEFT INDEX FINGER: Normal left index finger, without fracture or focal lesion. Remainder of the left hand (as seen on the AP view) grossly intact. JOINTS: Normal. SOFT TISSUES: This mild-moderate soft tissue swelling about the 2nd proximal interphalangeal joint level OTHER FINDINGS: None. IMPRESSION: No fracture or dislocation is suggested. Mild soft tissue swelling in the area of interest is noted.
--- NOTE | 2019-02-10 17:02 | CARD ---
APPROVED REPORT Date of service: 02/09/2019 EKG Measurement Heart [id number] <Conclusion> Sinus bradycardia Minimal voltage criteria for LVH, may be normal variant Borderline ECG
== END 2019-02-09 13:06 | disposition home or self-care (01) ==
LOC: C.ER 06:03
DX: M86.8X4 Other osteomyelitis, hand (principal)
CPT/HCPCS: 71045; 73140; 80053; 81001; 82803; 83735; 84100; 84484; 85025; 85610; 85730; 87040; 87086; 87205; 93005; 96374; 99285; J2405; J7030

== ENCOUNTER 2019-02-11 15:32 | Inpatient (IN) | payer MEDICAID ==
[2019-02-11 15:33] VITALS: BMI 23.5
--- NOTE | 2019-02-11 18:24 | C.PDOC ---
History Of Present Illness Patient is a 33 male who presents to the ED after being called back into the the ED for a positive lab result of bacteria in the blood from a previous visit to the ED in the past week. Patient reports that he was already receiving infusions at the hospital today before coming to the ED. Patient states that he had chills the night before and was vomiting today before coming to the hospital. Patient has a questionable fever. He still reports throbbing pressure to his left hand and reports that it is stiff and is unable to bend his fingers due to the stiffness. He denies any abdominal pain, SOB, urinary symptoms, or change to his stool. Time Seen by Provider: 02/11/19 15:51 Chief Complaint (Nursing): Abnormal Labs History Per: Patient History/Exam Limitations: no limitations Current Symptoms Are (Timing): Still Present Recent travel outside of the [place]: No Additional History Per: Patient Past Medical History Reviewed: Historical Data, Nursing Documentation, Vital Signs Vital Signs: Last Vital Signs Temp 98.1 F 02/11/19 16:03 Pulse 69 02/11/19 16:03 Resp 20 02/11/19 16:03 BP 105/67 02/11/19 16:03 Pulse Ox 99 02/11/19 15:43 - Medical History PMH: Asthma Denies: Deep Vein Thrombosis Surgical History: No Surg Hx Denies: Pacemaker - [facility] INSERTION OF INFUSION DEV INTO SUP VENA CAVA, PERC APPROACH (01/27/19) OTHER SKIN & SUBQ I D (04/12/14) Family History: States: Unknown Family Hx - Social History Hx Tobacco Use: Yes Hx Alcohol Use: No Hx Substance Use: No - Immunization History Hx Tetanus Toxoid Vaccination: Yes Hx Influenza Vaccination: Yes Hx Pneumococcal Vaccination: Yes Review Of Systems Except As Marked, All Systems Reviewed And Found Negative. Constitutional: Positive for: Fever (questionable), Chills Respiratory: Negative for: Shortness of Breath Gastrointestinal: Positive for: Vomiting. Negative for: Abdominal Pain, Diarrhea, Constipation Genitourinary: Negative for: Dysuria, Hematuria Musculoskeletal: Positive for: Hand Pain (left hand throbbing pressure and stiffness) Physical Exam - Physical Exam Appears: Non-toxic, No Acute Distress, Other (cachetic ) Skin: Warm, Dry Head: Atraumatic, Normacephalic Oral Mucosa: Moist Neck: Supple Chest: Symmetrical, No Deformity Cardiovascular: Rhythm Regular, No Murmur Respiratory: Normal Breath Sounds, No Rales, No Rhonchi, No Wheezing Gastrointestinal/Abdominal: Soft, No Tenderness Extremity: Swelling (swelling to 1rst PIP joints of 3rd, 4th, and 5th digits of left hand ), Other (pic line in right arm ) Neurological/Psych: Oriented x3, Normal Speech, Normal Cognition ED Course And Treatment - Laboratory Results Result Diagrams: 02/11/19 18:27 02/11/19 18:27 O2 Sat by Pulse Oximetry: 99 (on RA) Pulse Ox Interpretation: Normal Medical Decision Making Medical Decision Making: Plan: EKG Labs CXR Blood Culture Urine Culture Urinalysis Case was discussed with Dr. Beach (infectious disease) who agrees to consult on the case. The case was discussed with Dr. Issa who agrees to admit the patient. Disposition - Disposition Disposition: HOSPITALIZED Disposition Time: 19:15 Condition: STABLE Forms: [facility] (Ethiopian) - POA Present On Arrival: None - Clinical Impression Clinical Impression: Osteomyelitis, Bacteremia - PA / COW RIDER / Resident Statement MD/DO has examined the patient and agrees with the treatment plan. - Scribe Statement The provider has reviewed the documentation as recorded by the Luzibyesenia Matthew All medical record entries made by the Luzibyesenia were at my direction and personally dictated by me. I have reviewed the chart and agree that the record accurately reflects my personal performance of the history, physical exam, medical decision making, and the department course for this patient. I have also personally directed, reviewed, and agree with the discharge instructions and disposition.
[2019-02-11 18:36] LABS: BASO % 0.3 % (0.0-2.0); EOS # 0.5 K/uL (0.0-0.7); EOS % 5.4 % (0.0-4.0); HEMOGLOBIN 13.6 g/dL (12.0-18.0); LYMPH # 2.2 K/uL (1.0-4.3); LYMPH % 24.2 % (20.0-40.0); MEAN CELL VOLUME 93.7 fL (80.0-94.0); MEAN CORPUSCULAR HGB CONC 34.2 g/dL (33.0-37.0); MEAN PLATELET VOLUME 7.6 fL (7.2-11.7); MONO # 0.5 K/uL (0.0-0.8); MONO % 5.2 % (0.0-10.0); NEUT % 64.9 % (50.0-75.0); NRBC % 0.1 % (0.0-2.0); RBC 4.25 Mil/uL (4.40-5.90); WHITE BLOOD COUNT 9.2 K/uL (4.8-10.8)
[2019-02-11 18:49] LABS: INR 1.1
[2019-02-11 18:54] LABS: ALB/GLOB RATIO 1.6 (1.0-2.1); ALBUMIN 4.1 g/dL (3.5-5.0); ALT/SGPT 16 U/L (21-72); AST/SGOT 26 U/L (17-59); BLOOD UREA NITROGEN 13 mg/dL (9-20); CALCIUM 9.3 mg/dl (8.6-10.4); GFR NON-AFRICAN AMERICAN > 60; LIPASE 44 U/L (23-300)
--- NOTE | 2019-02-11 19:01 | RAD ---
HISTORY: abd pain COMPARISON: Chest x-ray performed 02/09/19 TECHNIQUE: Chest, one view. FINDINGS: Right-sided PICC extends to the SVC. LUNGS: No focal consolidation. Please note that chest x-ray has limited sensitivity for the detection of pulmonary masses. PLEURA: No significant pleural effusion identified. No definite pneumothorax . CARDIOVASCULAR: The cardiomediastinal silhouette appears within normal limits of size. No significant atherosclerotic calcification present. OSSEOUS STRUCTURES: No acute osseous abnormality identified. VISUALIZED UPPER ABDOMEN: Unremarkable. OTHER FINDINGS: None. IMPRESSION: Right-sided PICC.
[2019-02-11] MEDS ORDERED: Vancomycin 1 GM 1 GM/250 ML BAG IV STA (19:19)
[2019-02-11] MEDS ORDERED: Cefepime 1 GM in Sodium Chloride 0.9% 50 ML IVPB ONE (19:20)
[2019-02-11] MEDS ORDERED: Morphine 4 MG/ML VIAL ONE (19:46)
[2019-02-11] MEDS ORDERED: Vancomycin 1 GM 1 GM/250 ML BAG IVPB ONE (19:47)
[2019-02-11] MEDS: Aztreonam 2 GM in Sodium Chloride 0.9% 100 ML IVPB SCH (22:25)
[2019-02-11 22:50] LABS: SQUAMOUS EPITHIAL < 1 /hpf (0-5); URINE BILIRUBIN NEGATIVE (NEGATIVE); URINE BLOOD NEGATIVE (NEGATIVE); URINE CLARITY Clear (Clear); URINE COLOR Yellow (YELLOW); URINE GLUCOSE (UA) NORMAL (Normal); URINE LEUKOCYTE ESTERASE NEG Leu/uL (Negative); URINE PROTEIN NEGATIVE (NEGATIVE)
[2019-02-12] MEDS: Oxycodone/Acetaminophen 5/325 mg Tab PO PRN ×5 (01:01→21:48)
[2019-02-12] MEDS: Aztreonam 2 GM in Sodium Chloride 0.9% 100 ML IVPB SCH ×3 (05:57→21:49)
--- NOTE | 2019-02-12 07:13 | CP.PCM.PN ---
Subjective - Date & Time of Evaluation Date of Evaluation: 02/12/19 Time of Evaluation: 07:09 - Subjective Subjective: PGY-[address] Issa's service Pt seen and examined at bedside. Nursing reports no acute events overnight. Patient has been treated for 4th digit OM sporadically as outpatient - only "1 treatment" since discharge from [facility] on 01/28. Earlier in the week patient presented to [facility] ED for repeat blood cultures and was called back by ED due to positive (aerobic) culture only, showing gram negative kheinde. Patient states he feels better since restarting consistent antibiotic at [facility]. Denies fever, chills overnight. Patient is a 33 year old male w/ pmhx of asthma, recently admitted for treatment of left 4th digit OM who presents to the ED today with complaints of progressively worsening headaches, body pains, weakness, nausea, vomiting x2 days. Patient reports retrosternal and epigastric pain, left 2nd digit pain, generalized nausea, abdominal discomfort, 1-2 loose BMs/day and post prandial NBNB emesis. Patient reports non-compliance with his daily outpatient antibiotic infusions of Cubicin via right PICC since being discharged 01/28; stating he only receives 1-2 treatments weekly of a 6 week course, 2/2 transportation issues. Denies fever like symptoms, IV drug use, drainage from trauma sites, loss of sensation or coldness to upper extremities. Of note: patient recently presented to ED with complaints of left hand pain on 02/05; given pain medication with relief of symptoms Objective - Vital Signs/Intake and Output Vital Signs (last 24 hours): Temp Pulse Resp BP Pulse Ox 97.3 F L 69 20 123/78 95 02/11/19 23:35 02/11/19 23:35 02/11/19 23:35 02/11/19 23:35 02/11/19 23:35 Intake and Output: 02/12/19 02/12/19 06:59 18:59 Intake Total 400 Balance 400 - Medications Medications: Current Medications Aztreonam 2 gm/ Sodium (Chloride) 100 mls @ 200 mls/hr IVPB Q8H [facility]; Protocol Last Admin: 02/12/19 05:57 Dose: 200 mls/hr Oxycodone/Acetaminophen (Percocet 5/325 Mg Tab) 1 tab PO Q4H PRN PRN Reason: Pain, severe (8-10) Stop: 02/14/19 22:17 Last Admin: 02/12/19 05:57 Dose: 1 tab - Labs Labs: 02/11/19 18:27 02/11/19 18:27 PT 12.0 SECONDS (9.7-12.2) 02/11/19 18:27 INR 1.1 02/11/19 18:27 APTT 37 SECONDS (21-34) H 02/11/19 18:27 - Additional Findings Additional findings: - Constitutional Appears: Non-toxic, No Acute Distress, Agitated - Head Exam Head Exam: ATRAUMATIC - Eye Exam Eye Exam: EOMI. absent: Scleral icterus - ENT Exam ENT Exam: Mucous Membranes Moist - Respiratory Exam Respiratory Exam: NORMAL BREATHING PATTERN. absent: Accessory Muscle Use, Respiratory Distress - Cardiovascular Exam Cardiovascular Exam: REGULAR RHYTHM. absent: Bradycardia, Tachycardia - GI/Abdominal Exam GI & Abdominal Exam: Soft. absent: Firm, Guarding, Tenderness - Extremities Exam Additional comments: Left hand: middle/ring swollen at PIP jts Radial pulse 2+ - Neurological Exam Neurological exam: Alert, Oriented x3 - Psychiatric Exam Psychiatric exam: Normal Affect - Skin Skin Exam: Intact, Warm Assessment and Plan - Assessment and Plan (Free Text) Plan: Cellulitis, Right Hand; Bacteremia Admit to Med/Surg Afebrile, No WBC Hand xray (02/09/19): No fx/dislocation; mild soft tissue swelling in area of interest Blood culture (02/09/19): Acinetobacter Lwoffi (aerobic only) - f/u repeat culture Dr. Beach, ID - help appreciated Aztreonam 2gm IV Q8H (start 02/11/19; Day 2) - Received Vanco 1gm IV ONCE, Cefepime 1gm ONCE in ED - as outpatient, had one Cubicin IV infusions Dr. Farfan, Orthopedist (hand specialist) - help appreciated - f/u reccs Percocet 5/325mg 1 tab Q4H PRN for pain Asthma Duonebs Q4H PRN Hypokalemia (resolved) 3.3 on 02/09 ED labs; repleted Monitor PPX VTE: not indicated; pt ambulating GI not indicated SCDs Jose Ayers PGY3 All management per Luis Manuel
[2019-02-12] MEDS ORDERED: Albuterol-Ipratrop 3 mg / 0.5 (3 ml) UD INH PRN (07:27)
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
--- NOTE | 2019-02-12 10:50 | CARD ---
APPROVED REPORT Date of service: 02/11/2019 EKG Measurement Heart [id number] <Conclusion> Normal sinus rhythm Normal ECG
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
[2019-02-12] MEDS: Vancomycin 1 gm/NS 200 ml 1 GM/200 ML BAG IVPB SCH (22:30)
[2019-02-13] MEDS: Oxycodone/Acetaminophen 5/325 mg Tab PO PRN ×3 (05:41→23:52)
[2019-02-13] MEDS: Aztreonam 2 GM in Sodium Chloride 0.9% 100 ML IVPB SCH ×2 (05:41→22:52)
[2019-02-13 07:15] LABS: BASO % 0.6 % (0.0-2.0); EOS # 0.7 K/uL (0.0-0.7); EOS % 11.3 % (0.0-4.0); HEMOGLOBIN 12.5 g/dL (12.0-18.0); LYMPH # 2.5 K/uL (1.0-4.3); LYMPH % 39.2 % (20.0-40.0); MEAN CORPUSCULAR HEMOGLOBIN 33.1 pg (27.0-31.0); MEAN CORPUSCULAR HGB CONC 34.4 g/dL (33.0-37.0); MEAN PLATELET VOLUME 7.7 fL (7.2-11.7); MONO # 0.5 K/uL (0.0-0.8); MONO % 8.2 % (0.0-10.0); NEUT # 2.6 K/uL (1.8-7.0); NEUT % 40.7 % (50.0-75.0); RBC 3.79 Mil/uL (4.40-5.90); RED CELL DISTRIBUTION WIDTH 14.8 % (11.5-14.5); WHITE BLOOD COUNT 6.4 K/uL (4.8-10.8)
[2019-02-13 07:28] LABS: ALB/GLOB RATIO 1.7 (1.0-2.1); ALBUMIN 3.7 g/dL (3.5-5.0); ALT/SGPT 11 U/L (21-72); AST/SGOT 20 U/L (17-59); BLOOD UREA NITROGEN 15 mg/dL (9-20); CALCIUM 8.9 mg/dl (8.6-10.4); GFR NON-AFRICAN AMERICAN > 60
[2019-02-13 07:34] LABS: MEAN CELL VOLUME 96.3 fL (80.0-94.0)
[2019-02-13] MEDS: Vancomycin 1 gm/NS 200 ml 1 GM/200 ML BAG IVPB SCH (20:00)
[2019-02-14] MEDS: Aztreonam 2 GM in Sodium Chloride 0.9% 100 ML IVPB SCH ×3 (07:07→15:43)
[2019-02-14 07:48] LABS: BASO % 0.5 % (0.0-2.0); EOS # 0.8 K/uL (0.0-0.7); HEMOGLOBIN 13.4 g/dL (12.0-18.0); LYMPH # 2.6 K/uL (1.0-4.3); LYMPH % 39.3 % (20.0-40.0); MEAN CELL VOLUME 95.6 fL (80.0-94.0); MEAN CORPUSCULAR HGB CONC 34.6 g/dL (33.0-37.0); MEAN PLATELET VOLUME 7.7 fL (7.2-11.7); MONO # 0.7 K/uL (0.0-0.8); MONO % 10.1 % (0.0-10.0); NEUT # 2.5 K/uL (1.8-7.0); NEUT % 38.1 % (50.0-75.0); RBC 4.05 Mil/uL (4.40-5.90); RED CELL DISTRIBUTION WIDTH 14.5 % (11.5-14.5); WHITE BLOOD COUNT 6.6 K/uL (4.8-10.8)
[2019-02-14 08:07] LABS: ALB/GLOB RATIO 1.5 (1.0-2.1); ALBUMIN 3.9 g/dL (3.5-5.0); ALT/SGPT 16 U/L (21-72); AST/SGOT 24 U/L (17-59); BLOOD UREA NITROGEN 17 mg/dL (9-20); CALCIUM 9.3 mg/dl (8.6-10.4); GFR NON-AFRICAN AMERICAN > 60
[2019-02-14] MEDS: Oxycodone/Acetaminophen 5/325 mg Tab PO PRN (12:11)
--- NOTE | 2019-02-14 15:09 | HP ---
HISTORY OF PRESENT ILLNESS: A 31-year-old male with a history of drug abuse, admitted to the hospital with chief complaint of hand infection bacteremia. The patient was discharged home on antibiotics. The patient was called back because of positive blood cultures. PHYSICAL EXAMINATION: GENERAL: The patient is awake, alert, and oriented. VITAL SIGNS: Temperature 98, pulse 90. HEENT: Within normal limits. NECK: Supple. CHEST: Symmetrical. HEART: Regular. ABDOMEN: Soft. EXTREMITIES: His hand is swollen and tender. ASSESSMENT AND PLAN: The patient suffers from hand infection cellulitis, bacteremia. The patient is to get bedrest, intravenous antibiotics, infectious disease consult and hand surgery consult. Harinder Issa MD
--- NOTE | 2019-02-14 15:12 | PN ---
DATE: 02/13/2019 The patient is seen in room 654. The patient complained of pain in his hands. The patient is afebrile, on antibiotics. The patient is extremely belligerent, uncooperative, and not participating in the exam. I discussed with Dr. Beach, feel there is some serious concern about this patient misusing his PICC line. In view of recent in the blood when the patient had initial culture of the wound . I feel that sending this patient with PICC line would be extremely hazardous, so ____ will switch him to antibiotic by mouth and removing his PICC line. Harinder Issa MD
--- NOTE | 2019-02-14 15:53 | CP.PCM.PN ---
Subjective - Date & Time of Evaluation Date of Evaluation: 02/14/19 Time of Evaluation: 09:00 - Subjective Subjective: seen by orthopedics / plastics Patient did not show up for IV rx in infusion center- missed many doses advised that he may need amputTION OF DIGIT repeat cultures negative consider d/c PICC line and d/c on Oral rx- Zyvox for 3 more weeks to complete 6 week course and Cipro for 7 days will need hand surgery follow up and weekly labs Objective - Vital Signs/Intake and Output Vital Signs (last 24 hours): Temp Pulse Resp BP Pulse Ox 98.8 F 50 L 18 106/64 99 02/14/19 07:00 02/14/19 07:00 02/14/19 07:00 02/14/19 07:00 02/14/19 07:00 - Medications Medications: Current Medications Albuterol/Ipratropium (Duoneb 3 Mg/0.5 Mg (3 Ml) Ud) 3 ml INH RQ4 PRN PRN Reason: Shortness of Breath Aztreonam 2 gm/ Sodium (Chloride) 100 mls @ 200 mls/hr IVPB Q8H [facility]; Protocol Last Admin: 02/14/19 15:43 Dose: 200 mls/hr Vancomycin/Sodium Chloride (Vancomycin 1 Gm/Ns 200 Ml) 1 gm in 200 mls @ 133 mls/hr IVPB Q24H [facility]; Protocol Stop: 02/17/19 19:01 Last Admin: 02/13/19 20:00 Dose: 133 mls/hr Nicotine (Nicoderm Cq) 1 patch TD DAILY [facility] Last Admin: 02/13/19 13:26 Dose: 1 patch Oxycodone/Acetaminophen (Percocet 5/325 Mg Tab) 1 tab PO Q4H PRN PRN Reason: Pain, severe (8-10) Stop: 02/14/19 22:17 Last Admin: 02/14/19 12:11 Dose: 1 tab - Labs Labs: 02/14/19 07:39 02/14/19 07:39 PT 12.0 SECONDS (9.7-12.2) 02/11/19 18:27 INR 1.1 02/11/19 18:27 APTT 37 SECONDS (21-34) H 02/11/19 18:27 - Constitutional Appears: Non-toxic, Chronically Ill - Head Exam Head Exam: NORMOCEPHALIC - Eye Exam Eye Exam: absent: Scleral icterus Pupil Exam: NORMAL ACCOMODATION - ENT Exam ENT Exam: Mucous Membranes Dry - Neck Exam Neck Exam: absent: Lymphadenopathy - Respiratory Exam Respiratory Exam: Decreased Breath Sounds - Cardiovascular Exam Cardiovascular Exam: REGULAR RHYTHM - GI/Abdominal Exam GI & Abdominal Exam: Distended, Soft - Rectal Exam Rectal Exam: Deferred - Extremities Exam Extremities Exam: Joint Swelling - Back Exam Back Exam: absent: CVA tenderness (L), CVA tenderness (R) - Neurological Exam Neurological Exam: Alert, Awake, CN II-XII Intact, Oriented x3 - Psychiatric Exam Psychiatric exam: Flat Affect - Skin Skin Exam: Dry Assessment and Plan (1) Bacteremia Status: Acute (2) Osteomyelitis Status: Acute - Assessment and Plan (Free Text) Assessment: seen by orthopedics / plastics Patient did not show up for IV rx in infusion center- missed many doses advised that he may need amputation of digit repeat cultures negative from blood done on admiss consider d/c PICC line and d/c on Oral rx- Zyvox for 3 more weeks to complete 6 week course and Cipro for 7 days will need hand surgery follow up and weekly labsseen by orthopedics / plastics
[2019-02-14] MEDS: Vancomycin 1 gm/NS 200 ml 1 GM/200 ML BAG IVPB SCH (20:29)
[2019-02-14] MEDS ORDERED: Oxycodone/Acetaminophen 5/325 mg Tab PO STA (23:56)
[2019-02-15] MEDS: Aztreonam 2 GM in Sodium Chloride 0.9% 100 ML IVPB SCH (06:56)
[2019-02-15 07:18] LABS: BASO % 0.6 % (0.0-2.0); EOS # 0.7 K/uL (0.0-0.7); EOS % 10.1 % (0.0-4.0); HEMOGLOBIN 13.9 g/dL (12.0-18.0); LYMPH # 2.7 K/uL (1.0-4.3); LYMPH % 40.1 % (20.0-40.0); MEAN CELL VOLUME 95.6 fL (80.0-94.0); MEAN CORPUSCULAR HEMOGLOBIN 32.7 pg (27.0-31.0); MEAN CORPUSCULAR HGB CONC 34.2 g/dL (33.0-37.0); MEAN PLATELET VOLUME 7.6 fL (7.2-11.7); MONO # 0.7 K/uL (0.0-0.8); MONO % 9.9 % (0.0-10.0); NEUT # 2.6 K/uL (1.8-7.0); NEUT % 39.3 % (50.0-75.0); RBC 4.23 Mil/uL (4.40-5.90); RED CELL DISTRIBUTION WIDTH 14.7 % (11.5-14.5); WHITE BLOOD COUNT 6.7 K/uL (4.8-10.8)
[2019-02-15 07:51] LABS: ALB/GLOB RATIO 1.7 (1.0-2.1); ALT/SGPT 14 U/L (21-72); AST/SGOT 30 U/L (17-59); BLOOD UREA NITROGEN 21 mg/dL (9-20); CALCIUM 9.1 mg/dl (8.6-10.4); GFR NON-AFRICAN AMERICAN > 60
--- NOTE | 2019-02-15 08:27 | CP.PCM.PN ---
Subjective - Date & Time of Evaluation Date of Evaluation: 02/15/19 Time of Evaluation: 08:26 - Subjective Subjective: PGY3 note for Dr Issa's service Pt seen and examined at bedside. Nursing reports no acute events overnight. Patient found resting comfortably at bedside. Patient states "his hand feels much better" and is requesting to go home. Long conversation about importance of taking his PO antibiotics as directed and to not miss any doses. Denies fever, chills, abd pain, N/V/D. Objective - Vital Signs/Intake and Output Vital Signs (last 24 hours): Temp Pulse Resp BP Pulse Ox 98.2 F 59 L 20 107/65 100 02/14/19 23:15 02/14/19 23:15 02/14/19 23:15 02/14/19 23:15 02/14/19 23:15 Intake and Output: 02/15/19 02/15/19 06:59 18:59 Intake Total 100 Balance 100 - Medications Medications: Current Medications Albuterol/Ipratropium (Duoneb 3 Mg/0.5 Mg (3 Ml) Ud) 3 ml INH RQ4 PRN PRN Reason: Shortness of Breath Aztreonam 2 gm/ Sodium (Chloride) 100 mls @ 200 mls/hr IVPB Q8H ZULMA; Protocol Last Admin: 02/15/19 06:56 Dose: 200 mls/hr Vancomycin/Sodium Chloride (Vancomycin 1 Gm/Ns 200 Ml) 1 gm in 200 mls @ 133 mls/hr IVPB Q24H ZULMA; Protocol Stop: 02/17/19 19:01 Last Admin: 02/14/19 20:29 Dose: 133 mls/hr Nicotine (Nicoderm Cq) 1 patch TD DAILY ZULMA Last Admin: 02/14/19 17:14 Dose: 1 patch - Labs Labs: 02/15/19 07:10 02/15/19 07:10 PT 12.0 SECONDS (9.7-12.2) 02/11/19 18:27 INR 1.1 02/11/19 18:27 APTT 37 SECONDS (21-34) H 02/11/19 18:27 - Additional Findings Additional findings: - Constitutional Appears: Non-toxic, No Acute Distress, Agitated - Head Exam Head Exam: ATRAUMATIC - Eye Exam Eye Exam: EOMI. absent: Scleral icterus - ENT Exam ENT Exam: Mucous Membranes Moist - Respiratory Exam Respiratory Exam: NORMAL BREATHING PATTERN. absent: Accessory Muscle Use, Respiratory Distress - Cardiovascular Exam Cardiovascular Exam: REGULAR RHYTHM. absent: Bradycardia, Tachycardia - GI/Abdominal Exam GI & Abdominal Exam: Soft. absent: Firm, Guarding, Tenderness - Extremities Exam - Neurological Exam Neurological exam: Alert, Oriented x3 - Psychiatric Exam Psychiatric exam: Normal Affect - Skin Skin Exam: Intact, Warm Assessment and Plan - Assessment and Plan (Free Text) Plan: Cellulitis, Left Hand; Bacteremia Admit to Med/Surg Afebrile, No WBC Hand xray (02/09/19): No fx/dislocation; mild soft tissue swelling in area of interest Blood culture (02/09/19): Acinetobacter Lwoffi (aerobic only) - repeat blood culture (02/13/19): negative Dr. Beach, ID - help appreciated Aztreonam 2gm IV Q8H (start 02/11/19; Day 5) Vanco 1gm IV Daily (start 02/12; Day 5) - Received Cefepime 1gm ONCE in ED - as outpatient, had one Cubicin IV infusion Recommendation: consider d/c PICC line and d/c on Oral rx- Zyvox for 3 more weeks to complete 6 week course and Cipro for 7 days will need hand surgery follow up and weekly labs Percocet 5/325mg 1 tab Q4H PRN for pain Asthma Duonebs Q4H PRN Hypokalemia (resolved) 3.3 on 02/09 ED labs; repleted Monitor PPX VTE: not indicated; pt ambulating GI not indicated SCDs Nicotine patch Dispo: Stable for dc per Luis Manuel. Appreciate instructions from Dr Beach regarding antibiotics course. Long conversation with patient at bedside regarding importance of taking PO antibiotics as directed, following up with hand surgeon or orthopedist in his health plan network. Name of [facility], Dr. Micky Farfan was given to him but patient stated he would check to see if Dr. Farfan was "in-network." Advised patient he will need weekly blood work (CBC) while on Zyvox. Advised patient to look in health plan network for PMD. Recommended Dr. Issa as he was attending while pt in the hospital. Prescription given to patient. PICC line removed from right arm without complications - instructions given for wound care. Jose Ayers PGY3 All management per Luis Manuel
[2019-02-15 11:14] VITALS: BP 103/70; PULSE 69; RESP 18; TEMP 98.6; O2SAT 96
== END 2019-02-15 12:40 | disposition home or self-care (01) | DRG 344 ==
LOC: C.ER 15:32 → C.9E 19:18 → C.6T 19:59
PROVIDERS: ADMIT Internal Medicine Pulmonary Disease; ATTEND Internal Medicine Pulmonary Disease
DX: M86.142 Other acute osteomyelitis, left hand (principal); R78.81 Bacteremia; L03.114 Cellulitis of left upper limb; J45.909 Unspecified asthma, uncomplicated; E87.6 Hypokalemia; Z91.19 Patient's noncompliance with other medical treatment and regimen

== ENCOUNTER 2019-02-22 10:46 | Outpatient (CLI) | payer MEDICAID | END 2019-02-22 10:47 | disposition home or self-care (01) | LOC: C.LAB 10:46 | DX: Z51.81 Encounter for therapeutic drug level monitoring (principal) ==